=== PATIENT | male | born 1980 ===

== ENCOUNTER 2023-01-27 10:22 | Outpatient (CLI) | payer OTHER ==
--- NOTE | 2023-01-27 12:10 | XRAY Report ---
PROCEDURE: Hand 3 View RT INDICATIONS: MCP SPRAIN RIGHT THUMB TECHNIQUE: 3 views of the hand acquired. COMPARISON: None. FINDINGS: Bones: No acute fractures or dislocations. No suspicious bony lesions. Soft tissues: No suspicious soft tissue calcifications or masses. IMPRESSION: No acute osseous abnormality. If symptoms persist or there is continued clinical concern, further jose luation with MRI or CT may be helpful. Reviewed by: Lorenzo Ruiz MD on 01/27/2023 12:09 PM PDT Approved by: Lorenzo Ruiz MD on 01/27/2023 12:09 PM PDT Station ID: [id number]
== END 2023-01-27 23:59 | disposition home or self-care (01) ==
LOC: DI.S 10:22
PROVIDERS: ATTEND Emergency Medicine
DX: S63.641A Sprain of metacarpophalangeal joint of right thumb, initial encounter (principal)